=== PATIENT | female | born 1940 | race Caucasian/White ===

== ENCOUNTER → 2020-02-02 08:50 | Outpatient (CLI) | payer MEDICARE, SELFPAY ==
[2020-01-13 10:06] VITALS: BMI 27.8
--- NOTE | 2020-02-02 08:53 | ECHOD_ITS ---
Reason For Study: Murmur Procedure This was a 2D Doppler, Color Flow transthoracic echocardiogram. Exam performed in department. Left Ventricle Normal LV size. The estimated ejection fraction is 65 %. Stage 1 diastolic dysfunction. No regional wall motion abnormalities noted. Right Ventricle Normal RV size. Normal systolic function. Atria Normal left atrium. Normal right atrium. Mitral Valve Normal mitral valve. Tricuspid Valve Normal tricuspid valve. Mild tricuspid valve insufficiency. Pulmonary artery systolic pressure is 24 mmHg. Aortic Valve Normal aortic valve. Pulmonic Valve Normal pulmonic valve. Great Vessels Normal aortic root. The pulmonary artery is normal size. Normal inferior vena cava. Pericardium/Pleural No pericardial effusion. MMode/2D Measurements & Calculations LVIDd: 4.2 cm IVSd: 0.91 cm LA dimension: 3.9 cm LVIDs: 2.2 cm LVPWd: 0.86 cm FS: 48.0 % LAV(MOD-bp): 48.7 ml LA A4 area: 18.4 cm2 RA A4 area: 14.4 cm2 LAV(MOD-bp) Indexed: 27.4 ml/m2 LAV(MOD-sp2): 41.7 ml LAV(MOD-sp4): 56.6 ml Time Measurements MV dec time: 0.30 sec Doppler Measurements & Calculations MV E max chris: 71.7 cm/sec Lat Peak E' Chris: 4.4 cm/sec Med Peak E' Chris: 7.2 cm/sec MV A max chris: 85.7 cm/sec E/E' lat: 16.3 E/E' med: 10.0 MV E/A: 0.84 MV V2 max: 107.9 cm/sec MV P1/2t max chris: 90.5 cm/sec Ao V2 max: 165.6 cm/sec MV max P.7 mmHg MV P1/2t: 81.4 msec Ao max P.0 mmHg MV V2 mean: 54.3 cm/sec MV dec slope: 325.9 cm/sec2 MV mean P.4 mmHg MVA(P1/2t): 2.7 cm2 MV V2 VTI: 29.4 cm LV V1 max: 131.6 cm/sec PA V2 max: 98.2 cm/sec TR max chris: 226.7 cm/sec LV V1 max P.9 mmHg TR max P.6 mmHg Interpretation Summary Normal LV size. The estimated ejection fraction is 65 %. Stage 1 diastolic dysfunction. Mild tricuspid valve insufficiency. Pulmonary artery systolic pressure is 24 mmHg. Ordering Physician: Natalia Balderrama Referring Physician: Jeffery Dumont Performed By: Liu Robertson RCS
--- NOTE | 2020-02-02 08:53 | CDU_ITS ---
Reason For Study: Carotid bruit Rt. Velocities/BP Lt. Velocities/BP Prox CCA 79.9/8.2 cm/sec. Prox CCA 67.9/11.4 cm/sec. Mid CCA 70.8/13.4 cm/sec. Mid CCA 70.3/15.1 cm/sec. Dist CCA 54.2/12.4 cm/sec. Dist CCA 54.4/12.6 cm/sec. Prox ICA 61.9/13.5 cm/sec. Prox ICA 58.6/11.3 cm/sec. Mid ICA 83.8/16.8 cm/sec. Mid ICA 84.9/21.2 cm/sec. Dist ICA 121.7/17.6 cm/sec. Dist ICA 57/12 cm/sec. Rt. ICA/CCA = 1.7. Lt. ICA/CCA = 1.3. Prox ECA 87.1/10.2 cm/sec. Prox ECA 67.9/7.7 cm/sec. Rt. Vert. 58.1/12.6 cm/sec. Lt. Vert. 75.4/18.8 cm/sec. Right Extracranial There is homogeneous, smooth atherosclerotic plaque noted in the right common carotid artery. There is homogeneous, smooth atherosclerotic plaque noted in the right internal carotid artery. There is intimal thickening but no significant atherosclerotic plaque noted in the right external carotid artery. Antegrade flow is noted in the right vertebral artery. Left Extracranial There is homogeneous, smooth atherosclerotic plaque noted in the left common carotid artery. There is homogeneous, smooth atherosclerotic plaque noted in the left internal carotid artery. There is intimal thickening but no significant atherosclerotic plaque noted in the left external carotid artery. Antegrade flow is noted in the left vertebral artery. Procedure Carotid Duplex 40560. This is a Carotid Duplex examination using B-mode, color flow and specral Doppler. Exam performed in department. Interpretation Summary Minimal smooth plaque of the proximal right internal carotid artery with less than 50% stenosis Less than 50% stenosis right external carotid Minimal smooth plaque at the proximal left internal carotid artery with less than 50% stenosis Less than 50% stenosis left external carotid artery Patent and antegrade vertebral arteries bilaterally Ordering Physician: Natalia Balderrama Referring Physician: Jeffery Dumont Performed By: Sonya Hensley RVT
== END ==
PROVIDERS: PCP Family Medicine; Referring Provider Physician Assistant Medical; Visit Provider Physician Assistant Medical
DX: R01.1 Cardiac murmur, unspecified (principal); R09.89 Other specified symptoms and signs involving the circulatory and respiratory systems
CPT/HCPCS: 93306; 93880

== ENCOUNTER → 2022-08-04 | Outpatient (CLI) | payer MEDICARE, SELFPAY ==
--- NOTE | 2022-08-04 07:18 | ECHOCS_ITS ---
Reason For Study: HECTOR PEACE Procedure This was a 2D Doppler, Color Flow transthoracic echocardiogram. The study was technically difficult. Contrast injection was performed. Exam performed in department. Left Ventricle Normal LV size. Left ventricular systolic function is normal. The estimated ejection fraction is 65 %. Stage 1 diastolic dysfunction. No regional wall motion abnormalities noted. Right Ventricle Normal RV size. Normal systolic function. Atria Normal left atrium. Normal right atrium. Mitral Valve Normal mitral valve. Mild (1+) eccentric mitral valve insufficiency. Tricuspid Valve Mild (1+) tricuspid valve insufficiency. Pulmonary artery systolic pressure is 29 mmHg. Aortic Valve Trisinus/trileaflet aortic valve. Pulmonic Valve Normal pulmonic valve. Great Vessels Normal aortic root. The pulmonary artery is normal size. Normal inferior vena cava. Pericardium/Pleural No pericardial effusion. Medication 22 gauge I.V. with prn adaptor inserted into right arm. Diluted definity 1ml given slow IV push to enhance endocardial definition. MMode/2D Measurements & Calculations LVIDd: 4.6 cm IVSd: 0.67 cm Ao root diam: 3.1 cm LVIDs: 3.1 cm LVPWd: 0.80 cm LA dimension: 3.9 cm RVDd: 4.1 cm FS: 33.9 % LAV(MOD-bp): 45.3 ml LA A4 area: 16.1 cm2 RA A4 area: 17.1 cm2 LAV(MOD-bp) Indexed: 24.7 ml/m2 LAV(MOD-sp2): 47.4 ml LAV(MOD-sp4): 43.5 ml Time Measurements MV dec time: 0.23 sec Doppler Measurements & Calculations MV E max chris: 65.1 cm/sec Lat Peak E' Chris: 8.7 cm/sec Med Peak E' Chris: 7.0 cm/sec MV A max chris: 76.1 cm/sec E/E' lat: 7.5 E/E' med: 9.3 MV E/A: 0.86 MV V2 max: 93.9 cm/sec MV P1/2t max chris: 88.8 cm/sec Ao V2 max: 151.5 cm/sec MV max P.5 mmHg MV P1/2t: 94.5 msec Ao max P.2 mmHg MV V2 mean: 50.4 cm/sec MV dec slope: 275.0 cm/sec2 Ao V2 mean: 105.7 cm/sec MV mean P.2 mmHg Ao mean P.1 mmHg MV V2 VTI: 35.5 cm MVA(P1/2t): 2.3 cm2 Ao V2 VTI: 41.0 cm AV (velocity ratio): 0.80 LV V1 max: 135.2 cm/sec PA V2 max: 102.6 cm/sec TR max chris: 247.6 cm/sec LV V1 max P.3 mmHg PA V2 mean: 69.9 cm/sec TR max P.5 mmHg LV V1 mean P.8 mmHg LV V1 mean: 90.7 cm/sec LV V1 VTI: 32.9 cm ECHO/Echo Complete W/ Contrast Interpretation Summary Normal LV size. Left ventricular systolic function is normal. The estimated ejection fraction is 65 %. No regional wall motion abnormalities noted. Stage 1 diastolic dysfunction. Contrast injection was performed. Ordering Physician: Natlaia Balderrama Referring Physician: Natalia Balderrama Performed By: Liu Robertson RCS
--- NOTE | 2022-08-04 16:33 | STRESSREP_ITS ---
Stress Test Report Exercise myocardial perfusion stress test. 82-year-old lady with a history of chest pain and shortness of breath Stress protocol: Resting EKG demonstrates normal sinus rhythm with a rate of 57 bpm resting blood pressure is 152/78 mmHg. The patient exercised according to the regular Hugo protocol for a total duration of 5 minutes attaining a maximum heart rate of 126 bpm which was 90% of maximum predicted heart rate; the maximum workload was 7 metabolic equivalents. At rest there were no ST or T wave changes noted to suggest ischemia and at peak exercise upsloping ST changes only were noted which did not meet the criteria for ischemia. No clinical angina was noted the test was terminated due to the target heart rate being achieved/fatigue. The peak blood pressure was 170/70 mmHg. Rate-pressure product was 14,700. Myocardial perfusion protocol. 11.4 mCi of technetium 99m sestamibi was injected at rest. The patient exercise d according to regular Hugo protocol for total duration of 5 minutes and at peak exercise 34.1 mCi of technetium 99m sestamibi was injected stress images were obtained stress and rest images were reconstructed in comparing the short axis vertical long and horizontal long axis. Gated images were also obtained. Perfusion SPECT analysis: Review of the stress images demonstrate normal uptake of tracer noted in all areas of the myocardium. The resting images similarly demonstrate normal uptake of tracer noted in all areas of the myocardium. No areas of reversibility are noted to suggest ischemia no previous infarct was noted. Gated SPECT analysis: The gated ejection fraction is 85%. Conclusion: Normal exercise myocardial perfusion stress test at a moderate workload Preserved ejection fraction.
== END | disposition home or self-care (01) ==
LOC: CVS 07:16
PROVIDERS: PCP Family Medicine; Referring Provider Physician Assistant Medical; Visit Provider Physician Assistant Medical
DX: R07.9 Chest pain, unspecified (principal); R06.00 Dyspnea, unspecified
CPT/HCPCS: 78452; 93017; 93306; A9500; Q9957; A4216; C8929

== ENCOUNTER 2024-11-18 09:00 | Outpatient (RCR) | payer MEDICARE, SELFPAY ==
--- NOTE | 2024-10-14 11:30 | HP.PTEVAL ---
Patient's Visit Information Visit Information Visit Information: CHAITANYA GOMEZ is a 84 year old F referred to Physical Therapy by JOSEP Hansen with a diagnosis of Cervical Spine. 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 She finally went to the MD after it was not getting a lot better. She has had an MRI which was negative and so they sent her to PT. She complains of tightness in both sides of her neck and in the middle. She gets a pain in the middle of the back of the neck and radiates up into the top of the head. Aggravated by too much movement, later in the day and when she bends over. Once she stands back upright the pain goes away. No pain that radiates down the arms- no N/T. She loves to work outside and gardens. No CHOI, blurred vision. Will have dizziness if she bends over for too long of a time. 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 in 1991 she had a herniated disc and had surgery and has not had any issues since. Sleep: not disturbed PMHx/Meds: see list in chart. Objective Objective: Posture: forward head, rounded shoulders- can correct with verbal cues but does not maintain Gait: no deviation- good arm swing and trunk rotation Palpation: tender along medial border of the scapula- upper trap and occiput, thoracic parapsinals to the cervical paraspinals. ROM: WNL in all planes but report crepetis and tightness with rotation to the left and Sidebending left Strength: scap: fair, shoulder: 4/5, Elbow: 4+/5, wrist: 5/5, Electrifier Operator: normal Special Test: distraction: positive, suboccipital release: decreased s/s Balance/Special Test Scores Oswestry Neck Score: 2 Goals Goal 1:: Patient will be I with HEP and progression Goal Time Frame: 4-6 Weeks Goal 2:: Patient will maintain proper posture t/o tx session to demo increased scap s/s Goal Time Frame: 4-6 Weeks Goal 3:: Patient will report no pain with bending forward Goal Time Frame: 4-6 Weeks Goal 4:: Patient will report 80% improvement Goal Time Frame: 4-6 Weeks Rehabilitation Potential Physical Therapy Diagnosis: Patient presents with decreased scapular strength/stabilization and muscular endurance leading to increased pain with ADL's. Rehabilitation Potential: Good Anticipated Interventions Therapeutic Exercise to Include: Strength training, Endurance training, Balance training, Coordination, Agility training, Body mechanics, Postural training, Flexibilty training, Neuromotor development, Passive ROM, Active ROM, Dynamic Lumbar Stabilization and Scapular Strength/Stabilization For the Purpose of:: To improve muscle performance and motor function Manual Therapy Techniques to Include: Soft tissue mobilization TENS: Yes Cryotherapy (ice pack, ice massage): Yes Thermo therapy (hot pack): Yes Ultrasound (thermal/non thermal): Yes Text: Thank you for the opportunity to evaluate your patient. For Medicare and Medicare HMO plans, please review the plan of care and approve it. It will need to be FAXED BACK to us at [phone] for Medicare purposes. For Medicare only, by signing this I certify the plan of care. Please let me know if there are questions or concerns regarding this plan of care. Physician Signature: Date:
== END 2024-11-18 19:00 | disposition home or self-care (01) ==
LOC: PT 09:00
PROVIDERS: PCP Family Medicine; Referring Provider Physician Assistant; Visit Provider Physician Assistant
DX: M54.2 Cervicalgia (principal); R51.0 Headache with orthostatic component, not elsewhere classified
CPT/HCPCS: 97110; 97140; 97162; 97530